=== PATIENT | male | born 1990 | race Caucasian/White ===

== ENCOUNTER 2017-10-08 20:15 | Emergency (ER) | payer OTHER ==
[~2017-10-08] VITALS: Ht 175.3 cm; Wt 95.3 kg
[~2017-10-08 20:15] MED LIST: PRILOSEC OTC20 M1 PO; ZOFRAN ODT4 M1 SL
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
[2017-10-08 21:05] VITALS: BP 126/78
== END 2017-10-08 21:01 ==
LOC: ERH 20:15
DX: S01.81XA Laceration without foreign body of other part of head, initial encounter (principal); W51.XXXA Accidental striking against or bumped into by another person, initial encounter; Y93.67 Activity, basketball; Y92.9 Unspecified place or not applicable
CPT/HCPCS: 90471; 90714

== ENCOUNTER 2017-10-14 17:23 | Emergency (ER) | payer OTHER ==
[~2017-10-14] VITALS: Ht 175.3 cm; Wt 93.0 kg
[2017-10-14 19:25] VITALS: BP 138/95
--- NOTE | 2017-10-14 19:28 | ED ANIMAL BITE/WOUND CHECK ---
History of Present Illness General Chief Complaint: Suture Removal/Wound Recheck Stated Complaint: HERE FOR SUTURE REMOVAL Source: patient Exam Limitations: no limitations Vital Signs & Intake/Output Vital Signs & Intake/Output Vital Signs Date Time Temp Pulse Resp B/P B/P Pulse O2 O2 Flow FiO2 Mean Ox Delivery Rate 10/14 1925 68 16 138/95 97 Room Air 10/14 1727 97.7 90 15 150/83 97 Room Air Room Air Allergies Coded Allergies: No Known Allergies (10/14/17) Reconcile Medications No Known Home Medications Triage Note: PT TO ED FOR SUTURE REMOVAL TO R EYEBROW. DENIES SIGNS OF CONCUSSION. DENIES COMPLICATIONS. Triage Nurses Notes Reviewed? yes Onset: Abrupt Duration: day(s): (6), better, continues in ED Timing: single episode today Injury Environment: home Is Injury an Animal Bite? No No Modifying Factors: none HPI: 27-year-old male presents for suture removal. He was seen about a week ago with a laceration to his right eyebrow. Sutures are placed he's been keeping the area clean and dry. Denies any erythema swelling discharge or fever. No headaches. Past History Travel History Traveled to [place] past 21 day No Medical History Any Pertinent Medical History? 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 No Review of Systems Review of Systems Constitutional: Reports: no symptoms. EENTM: Reports: no symptoms. Respiratory: Reports: no symptoms. Cardiovascular: Reports: no symptoms. GI: Reports: no symptoms. Genitourinary: Reports: no symptoms. Musculoskeletal: Reports: no symptoms. Skin: Reports: see HPI (repaired laceration). Neurological/Psychological: Reports: no symptoms. Hematologic/Endocrine: Reports: no symptoms. Immunologic/Allergic: Reports: no symptoms. All Other Systems: Reviewed and Negative Physical Exam Physical Exam General Appearance: well developed/nourished, no apparent distress, alert, awake Head: atraumatic, normal appearance Eyes: Bilateral: normal appearance, EOMI. Ears, Nose, Throat: hearing grossly normal Neck: normal inspection, supple, full range of motion Respiratory: no respiratory distress Back: normal inspection, normal range of motion Extremities: normal range of motion Neurologic/Psych: no motor/sensory deficits, awake, alert, oriented x 3, normal gait Skin: normal color, warm/dry, there is a healed laceration approximately 2 cm in length located in the right eyebrow. Sutures are intact. There is no erythema or discharge. No swelling or tenderness to palpation Lymphatic: no anterior cervical tal Progress Differential Diagnosis: abscess, cellulitis Plan of Care: Patient seen and evaluated. Sutures removed without incident. There are no signs of infection the wound is well-healed. Reviewed wound care procedures in detail. Patient agrees the plan. Departure Departure Disposition: HOME OR SELF CARE Condition: Stable Clinical Impression Primary Impression: Visit for suture removal Referrals: Patient Has No Primary Care Dr (PCP/Family) Additional Instructions: Keep the area clean and dry look For signs of infection like redness swelling discharge or pain return with any concerns. Departure Forms: Customer Survey General Discharge Information Prescriptions: Current Visit Scripts No Known Home Medications
== END 2017-10-14 19:38 ==
LOC: ERH 17:23
DX: Z48.02 Encounter for removal of sutures (principal)